=== PATIENT | male | born 1950 | race Caucasian/White ===

== ENCOUNTER 2018-06-30 15:59 | Outpatient (CLI) | payer BC, MEDICARE ==
--- NOTE | 2018-06-30 17:06 | MRI ---
MR of the left shoulder without contrast INDICATION: Left shoulder pain. Left shoulder injury lifting weights TECHNIQUE: Sagittal T1, axial and coronal PD fat sat, sagittal and coronal T2 fat sat images were obt ained of the left shoulder. COMPARISON: None FINDINGS: Rotator cuff: There is moderate supraspinatus tendinosis. The rotator cuff is intact. Glenohumeral joint: There is mild glenoid articular surface chondrosis. There are small marginal oste ophytes off the inferior aspect of the humerus. Glenoid labrum: There is a circumferential tear of the glenoid labrum with some extension into the bi ceps anchor complex best seen on image 11 of series 5. There is a small para labral cyst seen along the posterior superior margin of the glenoid rim measuring 8 mm on image 12 of series 4. Biceps tendon and biceps anchor: There is mild tendinosis of the intra-articular biceps tendon. Acromion clavicular joint: There is severe AC joint osteoarthrosis with inferior projecting osteophyt es off the distal clavicle in addition joint hypertrophy causing mild encroachment on the subjacent supraspinatus. Subacromial subdeltoid space: No appreciable fluid. Axillary region: No lymphadenopathy. Surrounding shoulder musculature: Normal. No evidence of atrophy or strain. IMPRESSION: 1. Circumferential glenoid labral tear with partial thickness tear extension into the biceps anchor c omplex. 2. Mild glenohumeral osteoarthrosis. 3. Moderate supraspinatus tendinosis. 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 4. Mild biceps tendinosis
== END 2018-06-30 16:00 | disposition home or self-care (01) ==
LOC: SCSMRI 15:59
PROVIDERS: ATTEND Orthopaedic Surgery
DX: S46.912D Strain of unspecified muscle, fascia and tendon at shoulder and upper arm level, left arm, subsequent encounter (principal); S43.492A Other sprain of left shoulder joint, initial encounter; M75.22 Bicipital tendinitis, left shoulder; M19.012 Primary osteoarthritis, left shoulder

== ENCOUNTER 2020-03-28 08:45 | Day surgery (SDC) | payer BC ==
[2020-03-26 13:58] VITALS: BMI 22.1
[2020-03-28] MEDS ORDERED: PHENYLEPHRINE-NS 100 MCG/ML 10 ML SYRINGE ONE (09:12)
[2020-03-28] MEDS ORDERED: Ondansetron PF 4 MG/2 ML Vial ONE (09:12)
[2020-03-28] MEDS ORDERED: PROPOFOL 200 MG/20 ML VIAL ONE (09:12)
[2020-03-28] MEDS ORDERED: Lidocaine 1% PF 5 ML VIAL ONE (09:12)
[2020-03-28] MEDS ORDERED: ePHEDrine 50 MG/ML VIAL ONE (09:12)
[2020-03-28] MEDS ORDERED: Fentanyl 100 MCG/2 ML VIAL ONE (12:26)
[2020-03-28] MEDS ORDERED: Midazolam HCl 2 mg/2 ml Vial ONE (12:26)
[2020-03-28] MEDS ORDERED: Bacitracin Zinc Ointment 30 gm TUBE ONE (12:49)
[2020-03-28] MEDS ORDERED: Sodium Chloride 0.9% 10 ML ONE (12:49)
--- NOTE | 2020-03-28 22:02 | OP ---
DATE OF PROCEDURE: 03/28/2020 PREOPERATIVE DIAGNOSES: 1. Radial index finger digital nerve laceration. 2. 7 cm wound and open index finger P1 fracture finding. All of above with the fracture being impression fracture with some mild gross contamination requiring debridement, loss of substance of about 2 cm x 3 mm wide area of the terminal aspect of the sagittal band and radial extensor mechanism, but with a 2 cm laceration proximal to that there was injury repair and the digital nerve laceration with minimal gap formation so it could be repaired. PROCEDURE PERFORMED: 1. Neuroplasty of digital nerve, microscopic. 2. Microscopic radial digital nerve repair, all this is right index finger. 3. Wound debridement down to include bone for open treatment of proximal phalanx fracture as described during intraop. 4. Debridement material associated open fracture and final closure of 7 cm wound complex. 5. Application of short-arm splint. BLOOD LOSS: 15 mL. TOURNIQUET TIME: 45 minutes. INDICATIONS: Saw to the hand causing the injuries as listed above. Open injury, absence of 2-point discrimination, sensation on the radial aspect and wound that was not sutured. DESCRIPTION OF PROCEDURE: After successful general endotracheal anesthesia, the limb prepped and draped. We gave him 10 mL of 0.5% Marcaine block without epinephrine at the start of procedure. We then proceeded to extend his wound 0.5 cm proximal to the palmar aspect and 1 cm distal to the dorsal aspect where we exposed the second mechanism, found first that this fracture was only a 3 mm deep, 1.5 mm from radial to ulna, but all the way from dorsal to palmar, but not complete, not unstable, so we debrided that because it was open, combination of Dixon blade, multiple curettes and irrigation with 1500 mL normal saline. We then debrided the wound edges with tenotomy scissors in an excisional technique down to and including the edge of the tendon where we found the defect of approximately 2 cm x wide distal 1/3rd of the lateral band and then we repaired that after debridement with 4-0 Prolene. He had some fat missing and once we extended the palmar incision, we noticed that the digital nerve was lacerated, but there was enough tissue for continuity repair. We brought the microscope on the field and did finish the digital nerve neuroplasty completely, we then resected 1 mm on both sides of the tear and using a 9-0 nylon under microscope, repaired the digital nerve in epineural repair technique using 3 stitches. We then released the tourniquet. We closed the wound with an interrupted 4-0 nylon and the patient had a pink digit. Hemostasis was excellent. At the end of the procedure, we gave additional 10 mL of 0.5% Marcaine for a total of 20 and he left the operating room in a short-arm splint which we applied without complication. We waited for it to become mould and held the finger in extension index and long finger together. He left the operating room with a pink digit. No evidence of anesthetic or operative complication. Job ID: [id number]
== END 2020-03-28 16:26 | disposition home or self-care (01) ==
LOC: SDC 08:45
PROVIDERS: ATTEND Orthopaedic Surgery Hand Surgery
PROC: 0PBT0ZZ Excision of Right Finger Phalanx, Open Approach (ICD-10-PCS; principal; 2020-03-28)
PROC: 01N Peripheral Nervous System, Release (ICD-10-PCS; principal; 2020-03-28)
DX: S64.490A Injury of digital nerve of right index finger, initial encounter (principal); S62.91XB Unspecified fracture of right hand, initial encounter for open fracture; E11.9 Type 2 diabetes mellitus without complications; Z79.84 Long term (current) use of oral hypoglycemic drugs; Z79.899 Other long term (current) drug therapy; Z88.2 Allergy status to sulfonamides
CPT/HCPCS: 36416; J0690; J2250; J2405; J2704; J3010; J3490

== ENCOUNTER 2024-12-24 12:20 | Outpatient (CLI) | payer MEDICARE ==
[2024-12-24 13:35] LABS: Estimated GFR - POC 91.0
== END 2024-12-24 12:21 | disposition home or self-care (01) ==
LOC: SCSMRI 12:20
PROVIDERS: ATTEND Urology
DX: C61 Malignant neoplasm of prostate (principal)
CPT/HCPCS: 36415; 72197; 82565